=== PATIENT | female | born 1940 | race Caucasian/White ===

== ENCOUNTER 2020-08-18 16:17 | Inpatient (IN) | payer MEDICARE ==
[~2020-08-18] VITALS: Ht 149.9 cm; Wt 58.6 kg
[~2020-08-18 16:17] MED LIST: ACYC-114 PO; ALBU2.5V NEB; ATOR40TA PO; CALC0.25 PO; CARV3.1212 PO; DEXAMETHASONE PO; GABA300C PO; HYDR-3341 PO; IPRA3AMP30 INH; LEVO50TA PO; MONT10TA6 PO; NITR0.4T28 SL; OMEP20CA20 PO; ONDA8TAB16 SL; PRAM0.255 PO; PROC10TA2 PO; TAMS-11 PO; TORS20TA2 PO; WARF-36 PO; WARF2.5T32 PO; [UNRECOGNIZED DRUG - OTHER] PO
--- NOTE | 2020-08-18 16:20 | NUR ---
PT GRICEL SOTO FROM [facility] SHE LIVES FOR C/O LOW BP THIS AM (90/50) WHEN HOME HEALTH RN WAS THERE, LIGHTHEADEDNESS, AND HR GOING UP TO 130s TODAY WITH PHYSICAL THERAPY. PT HAS HX CHF, PACER FOR AFIB, MULTIPLE MYELOMA, AND KIDNEY FAILURE. ARRIVES TO ED A&OX4, VSS AT THIS TIME.
--- NOTE | 2020-08-18 17:08 | NUR ---
ERP AT BS.
[2020-08-18 17:45] LABS: BASOPHILS % (AUTO) 1 % (0-1); EOSINOPHILS % (AUTO) 1 % (1-7); LYMPHOCYTES % (AUTO) 9 % (22-44); MEAN CORPUSCULAR HEMOGLOBIN 33.1 pg (27.0-34.8); MEAN CORPUSCULAR HGB CONC 33.4 g/dL (32.4-35.8); MEAN PLATELET VOLUME 8.1 fL (7.4-10.4); MONOCYTES % (AUTO) 6 % (2-9); NEUTROPHILS % (AUTO) 84 % (42-75); PLATELET COUNT 319 x10^3/uL (130-400); RED BLOOD COUNT 3.05 x10^6/uL (3.82-5.3); RED CELL DISTRIBUTION WIDTH 20.5 % (9.6-15.2)
[2020-08-18 17:46] LABS: MD NO
--- NOTE | 2020-08-18 17:46 | NUR ---
US AT BS.
[2020-08-18 17:47] LABS: ALANINE AMINOTRANSFERASE 21 U/L (12-78); ALBUMIN 2.9 g/dL (3.4-5.0); ANION GAP 6 mmol/L (5-15); CALCIUM 7.8 mg/dL (8.5-10.1); CHLORIDE 104 mmol/L (98-107); CREATININE 2.33 mg/dL (0.55-1.02)
[2020-08-18 17:49] LABS: D-DIMER 0.37 ug/mlFEU (0.00-0.52); INTERNATIONAL NORMALIZED RATIO 1.39 (0.93-1.1); PROTHROMBIN TIME 14.8 Seconds (9.6-11.5)
[2020-08-18 17:52] LABS: ALKALINE PHOSPHATASE 72 U/L (45-117); BILIRUBIN,TOTAL 0.4 mg/dL (0.2-1.0); TOTAL PROTEIN 6.1 g/dL (6.4-8.2); TROPONIN I 0.025 ng/mL (0.000-0.045)
--- NOTE | 2020-08-18 18:42 | NUR ---
ASSISTED PT UP TO BSC TO VOID. PT REPORTS FEELING A LITTLE SOB AND LIGHTHEADED AFTER GETTING UP. HR UP TO 110s NOW. ERP AT BS NOW FOR RECHECK.
[2020-08-18] MEDS ORDERED: AMIODARONE 200 MG TABLET PO ONE (19:30)
[2020-08-18] MEDS ORDERED: AMIODARONE PO (19:58)
[2020-08-18] MEDS ORDERED: MIRAPEX PO (20:00)
[2020-08-18] MEDS ORDERED: AMIODARONE 200 MG TABLET ONE (20:01)
[2020-08-18] MEDS ORDERED: AMIO100T4 PO (20:56)
[2020-08-18] MEDS ORDERED: PRAM0.255 PO (20:56)
[2020-08-18] MEDS ORDERED: ACYC-114 PO (20:58)
[2020-08-18] MEDS ORDERED: PROC10TA78 PO (20:58)
[2020-08-18] MEDS ORDERED: DEXAMETHASONE PO (20:58)
[2020-08-18] MEDS ORDERED: TRAM50TA2 PO (21:00)
[2020-08-18] MEDS ORDERED: LORA-445 PO (21:00)
[2020-08-18] MEDS ORDERED: OXYC-380 PO (21:00)
[2020-08-18] MEDS ORDERED: TORS20TA2 PO (21:00)
[2020-08-18] MEDS ORDERED: MELATONIN 5 MG TABLET PO PRN (21:30)
[2020-08-18] MEDS ORDERED: DOCUSATE 100 MG CAPSULE PO PRN (21:30)
[2020-08-18 21:34] VITALS: BP 115/64
[2020-08-18] MEDS: LORazepam 0.5MG TABLET PO SCH (22:31)
[2020-08-18] MEDS: ACETAMINOPHEN 325 MG TABLET PO PRN (22:38)
[2020-08-19] VITALS (7 sets, daily range): BP systolic 87–143; BP diastolic 41–74
[2020-08-19 05:04] LABS: BASOPHILS % (AUTO) 0 % (0-1); EOSINOPHILS % (AUTO) 1 % (1-7); LYMPHOCYTES % (AUTO) 10 % (22-44); MEAN CORPUSCULAR HEMOGLOBIN 33.2 pg (27.0-34.8); MEAN CORPUSCULAR HGB CONC 33.5 g/dL (32.4-35.8); MEAN PLATELET VOLUME 8.1 fL (7.4-10.4); MONOCYTES % (AUTO) 8 % (2-9); NEUTROPHILS % (AUTO) 80 % (42-75); PLATELET COUNT 259 x10^3/uL (130-400); RED BLOOD COUNT 2.82 x10^6/uL (3.82-5.3); RED CELL DISTRIBUTION WIDTH 20.4 % (9.6-15.2)
[2020-08-19 05:05] LABS: MD NO
[2020-08-19 05:18] LABS: ANION GAP 8 mmol/L (5-15); CHLORIDE 105 mmol/L (98-107)
[2020-08-19 05:28] LABS: FREE T4 (FREE THYROXINE) 1.44 ng/dL (0.76-1.46)
[2020-08-19] MEDS ORDERED: LEVOTHYROXINE 50 MCG TABLET PO SCH (06:00)
[2020-08-19] MEDS ORDERED: DEXAMETHASONE 4 MG TABLET PO SCH (07:30)
[2020-08-19] MEDS: TORSEMIDE 20 MG TABLET PO SCH (08:42)
[2020-08-19] MEDS: PRAMIPEXOLE 0.25MG TABLET PO SCH (08:43)
[2020-08-19] MEDS: ACYCLOVIR 200 MG CAPSULE PO SCH (08:43)
[2020-08-19] MEDS: PROCHLORPERAZINE 10MG TABLET PO SCH (08:44)
[2020-08-19] MEDS: ACETAMINOPHEN 325 MG TABLET PO PRN ×3 (08:44→21:16)
[2020-08-19] MEDS: LORazepam 0.5MG TABLET PO SCH ×2 (08:44→21:16)
[2020-08-19] MEDS ORDERED: HEPARIN 5,000 UNITS/ML, 1ML IV PRN (09:00)
[2020-08-19] MEDS ORDERED: HEPARIN 5,000 UNITS/ML, 1ML IV ONE (09:00)
[2020-08-19] MEDS ORDERED: AMIODARONE 200 MG TABLET PO SCH (09:00)
[2020-08-19] MEDS: HEPARIN 25,000 UNITS/250ML PMX 250 ML IV PRN (10:34)
[2020-08-19] MEDS: METOPROLOL SUCCINATE 25 MG TAB.ER.24H PO SCH ×2 (10:35→21:17)
[2020-08-19] MEDS: AMIODARONE 200 MG TABLET PO SCH ×2 (12:23→17:22)
[2020-08-19] MEDS ORDERED: WARFARIN 5 MG TABLET PO-COUM ONE (18:00)
[2020-08-20 00:24] VITALS: BP 145/72
[2020-08-20 05:21] LABS: INTERNATIONAL NORMALIZED RATIO 1.33 (0.93-1.1); PROTHROMBIN TIME 14.1 Seconds (9.6-11.5)
[2020-08-20 05:25] LABS: ANION GAP 8 mmol/L (5-15); CALCIUM 7.9 mg/dL (8.5-10.1); CHLORIDE 106 mmol/L (98-107)
[2020-08-20 05:27] LABS: CREATININE 2.45 mg/dL (0.55-1.02)
[2020-08-20] MEDS ORDERED: LEVOTHYROXINE 75 MCG TABLET PO SCH (06:00)
[2020-08-20 06:58] VITALS: BP 144/72
[2020-08-20] MEDS: PRAMIPEXOLE 0.25MG TABLET PO SCH (08:19)
[2020-08-20] MEDS: TORSEMIDE 20 MG TABLET PO SCH (08:19)
[2020-08-20] MEDS: AMIODARONE 200 MG TABLET PO SCH ×3 (08:19→17:26)
[2020-08-20] MEDS: ACYCLOVIR 200 MG CAPSULE PO SCH (08:19)
[2020-08-20] MEDS: PROCHLORPERAZINE 10MG TABLET PO SCH (08:19)
[2020-08-20] MEDS: LORazepam 0.5MG TABLET PO SCH ×2 (08:20→20:38)
[2020-08-20] MEDS: METOPROLOL SUCCINATE 25 MG TAB.ER.24H PO SCH ×2 (08:20→20:38)
[2020-08-20] MEDS: ACETAMINOPHEN 325 MG TABLET PO PRN ×2 (08:20→20:38)
[2020-08-20] MEDS ORDERED: WARFARIN 2.5 MG TABLET PO-COUM ONE (09:00)
[2020-08-20 10:37] VITALS: BP 109/73
[2020-08-20 13:49] VITALS: BP 143/82
[2020-08-20] MEDS ORDERED: TAMS-11 PO (17:23)
[2020-08-20] MEDS ORDERED: WARFARIN 5 MG TABLET PO-COUM ONE (18:00)
[2020-08-20] MEDS: HEPARIN 25,000 UNITS/250ML PMX 250 ML IV PRN (20:34)
[2020-08-20 20:37] VITALS: BP 153/76
[2020-08-21 00:10] VITALS: BP 159/74
[2020-08-21 05:16] LABS: BASOPHILS % (AUTO) 0 % (0-1); EOSINOPHILS % (AUTO) 2 % (1-7); LYMPHOCYTES % (AUTO) 8 % (22-44); MEAN CORPUSCULAR HGB CONC 33.1 g/dL (32.4-35.8); MEAN PLATELET VOLUME 8.1 fL (7.4-10.4); MONOCYTES % (AUTO) 8 % (2-9); NEUTROPHILS % (AUTO) 82 % (42-75); PLATELET COUNT 289 x10^3/uL (130-400); RED BLOOD COUNT 2.82 x10^6/uL (3.82-5.3)
[2020-08-21 05:19] LABS: MD NO
[2020-08-21 05:23] LABS: ANION GAP 8 mmol/L (5-15); CALCIUM 7.9 mg/dL (8.5-10.1); CHLORIDE 105 mmol/L (98-107); INTERNATIONAL NORMALIZED RATIO 1.67 (0.93-1.1); PROTHROMBIN TIME 17.7 Seconds (9.6-11.5)
[2020-08-21 05:24] LABS: CREATININE 2.17 mg/dL (0.55-1.02)
[2020-08-21] MEDS ORDERED: LEVOTHYROXINE 50 MCG TABLET PO SCH (06:00)
[2020-08-21 07:36] VITALS: BP 145/81
[2020-08-21] MEDS: LORazepam 0.5MG TABLET PO SCH (09:07)
[2020-08-21] MEDS: METOPROLOL SUCCINATE 25 MG TAB.ER.24H PO SCH (09:07)
[2020-08-21] MEDS: ACYCLOVIR 200 MG CAPSULE PO SCH (09:07)
[2020-08-21] MEDS: PROCHLORPERAZINE 10MG TABLET PO SCH (09:08)
[2020-08-21] MEDS: PRAMIPEXOLE 0.25MG TABLET PO SCH (09:09)
[2020-08-21] MEDS: TORSEMIDE 20 MG TABLET PO SCH (09:09)
[2020-08-21] MEDS: AMIODARONE 200 MG TABLET PO SCH ×2 (09:09→12:35)
[2020-08-21] MEDS: ACETAMINOPHEN 325 MG TABLET PO PRN (09:13)
[2020-08-21] MEDS ORDERED: WARF2TAB99 PO (12:20)
[2020-08-21] MEDS ORDERED: METO25TA91 PO (12:20)
[2020-08-21] MEDS ORDERED: AMIO100T4 PO (12:20)
[2020-08-21] MEDS ORDERED: METOPROLOL SUCCINATE 25 MG TAB.ER.24H ONE ×2 (13:26→13:28)
[2020-08-21] MEDS ORDERED: METOPROLOL SUCCINATE 25 MG TAB.ER.24H PO ONE (13:30)
[2020-08-21] MEDS ORDERED: METOPROLOL SUCCINATE 25 MG TAB.ER.24H PO SCH (21:00)
== END 2020-08-21 13:43 | disposition home health service (06) | DRG 309 ==
LOC: ED 19:30 → EDIP 19:32 → 5SO 21:31 → DCLOUNGE 08-21 13:34
PROVIDERS: ADMIT Family Medicine; ATTEND Internal Medicine
PROC: 4B02XSZ Measurement of Cardiac Pacemaker, External Approach (ICD-10-PCS; principal; 2020-08-18)
DX: I48.0 Paroxysmal atrial fibrillation (principal); C90.00 Multiple myeloma not having achieved remission; D68.59 Other primary thrombophilia; D84.821 Immunodeficiency due to drugs; N18.4 Chronic kidney disease, stage 4 (severe); I48.21 Permanent atrial fibrillation; I42.9 Cardiomyopathy, unspecified; D63.8 Anemia in other chronic diseases classified elsewhere; T45.1X5A Adverse effect of antineoplastic and immunosuppressive drugs, initial encounter; E03.9 Hypothyroidism, unspecified; J44.9 Chronic obstructive pulmonary disease, unspecified; I50.9 Heart failure, unspecified; Z86.16 Personal history of COVID-19; F41.9 Anxiety disorder, unspecified; K21.9 Gastro-esophageal reflux disease without esophagitis; Y92.89 Other specified places as the place of occurrence of the external cause; Z79.01 Long term (current) use of anticoagulants; Z79.52 Long term (current) use of systemic steroids; Z86.718 Personal history of other venous thrombosis and embolism; Z87.01 Personal history of pneumonia (recurrent); Z87.891 Personal history of nicotine dependence; Z95.0 Presence of cardiac pacemaker; Z98.1 Arthrodesis status
CPT/HCPCS: 36415; 71045; 80048; 80053; 83735; 83880; 84100; 84439; 84443; 84484; 85025; 85379; 85520; 85610; 93005; 99285; G0378; J1644; Q0164

== ENCOUNTER → 2020-10-21 | Outpatient (CLI) | payer MEDICARE ==
[~2020-10-21] MED LIST changes: -ACYC-114 PO; +ACYC-40 PO; +AMIO100T4 PO; +AMIODARONE PO; +LORA-445 PO; +METO25TA91 PO; +MIRAPEX PO; +OMNIPAQUE 350 MG/ML, 100ML BOTTLE ONE; +OXYC-380 PO; +PROC10TA78 PO; +TRAM50TA2 PO; +WARF2TAB99 PO
== END | disposition home or self-care (01) ==
LOC: CFH 13:06
PROVIDERS: ATTEND Internal Medicine Cardiovascular Disease
DX: G31.89 Other specified degenerative diseases of nervous system (principal); R41.3 Other amnesia
CPT/HCPCS: 70460; Q9967

== ENCOUNTER → 2020-12-24 | Outpatient (CLI) | payer MEDICARE ==
[~2020-12-24] MED LIST changes: -OMNIPAQUE 350 MG/ML, 100ML BOTTLE ONE
== END | disposition home or self-care (01) ==
LOC: CFH 14:16
PROVIDERS: ATTEND Internal Medicine Hematology & Oncology
DX: C90.00 Multiple myeloma not having achieved remission (principal); I08.8 Other rheumatic multiple valve diseases; I11.0 Hypertensive heart disease with heart failure; E78.00 Pure hypercholesterolemia, unspecified; Z95.0 Presence of cardiac pacemaker
CPT/HCPCS: 93306